=== PATIENT | female | born 1985 | race Caucasian/White ===

== ENCOUNTER 2017-02-24 08:17 | Day surgery (SDC) | payer OTHER ==
[~2017-02-24 08:17] MED LIST: AUGMENTIN 875-1 EAC2 PO; IBUPROFEN800 M1 PO; MIRENA1 EACH IU; PRENATAL-U CAPS1 CAP PO; PROZAC20 M3 PO; VITAMIN D3 PO
== END 2017-02-24 15:21 ==
LOC: SRG 08:17 → SHSC 08:20 → ORW 10:24 → PACU 12:26 → SHSC 13:15
PROC: 0FT44ZZ Resection of Gallbladder, Percutaneous Endoscopic Approach (ICD-10-PCS; principal; 2017-02-24)
DX: K80.10 Calculus of gallbladder with chronic cholecystitis without obstruction (principal); G43.909 Migraine, unspecified, not intractable, without status migrainosus; F32.9 Major depressive disorder, single episode, unspecified; I10 Essential (primary) hypertension; Z79.1 Long term (current) use of non-steroidal anti-inflammatories (NSAID); Z79.899 Other long term (current) drug therapy; Z88.5 Allergy status to narcotic agent; Z85.820 Personal history of malignant melanoma of skin; Z98.890 Other specified postprocedural states
CPT/HCPCS: J0690; J1170; J1200; J1885; J2405; J2550; J3010; J7030